=== PATIENT | male | born 1985 | race Caucasian/White ===

== ENCOUNTER 2018-07-24 19:37 | Emergency (ER) | payer SELFPAY ==
[2018-07-24] MEDS ORDERED: Lidocaine 1%* 5 ML VIAL INJ ONE (20:00)
[2018-07-24] MEDS ORDERED: Tetan/Diph/Pertus SYR(Tdap)* 0.5 ML SYR(BOOSTRIX) use SYR IM ONE (20:00)
--- NOTE | 2018-07-24 20:32 | UC ---
Laceration HPI - HPI Summary HPI Summary: Pt presents with c/o laceration to left hand between thumb and index finger. Pt was cutting up fire wood and knife cut hand. Pt is unsure of last tetanus. - History Of Current Complaint Chief Complaint: UCLaceration Stated Complaint: LEFT HAND PUNCTURE Time Seen by Provider: 07/24/18 19:48 Hx Obtained From: Patient Laceration Location: Hand Mechanism Of Injury: Sharp Trauma Onset/Duration: Sudden Onset Severity: Moderate Pain Intensity: 6 Related History: Dominant Hand Right - Allergies/Home Medications Allergies/Adverse Reactions: Allergies Allergy/AdvReac Type Severity Reaction Status Date / Time No Known Allergies Allergy Verified 07/24/18 19:49 Home Medications: Home Medications ALPRAZolam TAB* [Xanax TAB*] 0.5 mg PO TID PRN 07/24/18 [History Confirmed 07/24] PMH/Surg Hx/FS Hx/Imm Hx Previously Healthy: Yes - Surgical History Surgical History: Yes Surgery Procedure, Year, and Place: Hernia. Left thumb sx for torn ligament - Family History Known Family History: Positive: Cardiac Disease - Social History Occupation: Employed Full-time Lives: With Family Alcohol Use: Occasionally Substance Use Type: None Smoking Status (MU): Current Some Day Smoker Type: Cigars Amount Used/How Often: occassional Have You Smoked in the Last Year: Yes - Immunization History Vaccination Up to Date: No Review of Systems Constitutional: Negative Skin: Other - laceration left hand, Eyes: Negative ENT: Negative Respiratory: Negative Cardiovascular: Negative Gastrointestinal: Negative Genitourinary: Negative Motor: Negative Neurovascular: Negative Musculoskeletal: Negative Neurological: Negative Psychological: Negative Is Patient Immunocompromised?: No All Other Systems Reviewed And Are Negative: Yes Physical Exam Triage Information Reviewed: Yes Appearance: Well-Appearing Vital Signs: Initial Vital Signs Temp 99.5 F 07/24/18 19:50 Pulse 86 07/24/18 19:50 Resp 14 07/24/18 19:50 BP 148/89 07/24/18 19:50 Pulse Ox 99 07/24/18 19:50 Vital Signs Reviewed: Yes Eye Exam: Normal ENT Exam: Normal Dental Exam: Normal Neck exam: Normal Respiratory: Positive: No respiratory distress Musculoskeletal Exam: Normal Neurological Exam: Normal Psychological Exam: Normal Skin Exam: Other - laceration to left hand between thumb and first finger. Laceration Repair - Laceration Repair 1 Description: Linear Laceration Size After Repair: Length (cm) - .5, Width (mm) - 2, Depth (mm) - 3 Modified For Repair: No Type Injection: Local Cleansing Completed Via Routine Prep: Yes Closure Material: Sutures Closure Method: Single Layer Suture Of: Skin Suture Type: Prolene - 4-0. One suture placed left hand between thumb and index finger Laceration Course/Dx - Differential Dx - Laceration/Wound Differental Diagnoses: Laceration Provider Diagnoses: laceration repair to left hand. Discharge - Sign-Out/Discharge Documenting (check all that apply): Patient Departure All imaging exams completed and their final reports reviewed: No Studies - Discharge Plan Condition: Stable Disposition: HOME Prescriptions: Cephalexin CAP* [Keflex 500 CAP*] 500 mg PO Q8H #9 cap Patient Education Materials: Care For Your Stitches (DC), Laceration (ED) Referrals: [facility] [Outside] - If Needed No Primary Care Phys,NOPCP [Primary Care Provider] - Additional Instructions: Please return to clinic or go to your PCP to have your suture removed in 7-9 days. - Billing Disposition and Condition Condition: STABLE Disposition: Home
== END 2018-07-24 20:53 | disposition home or self-care (01) ==
LOC: UCCORT 19:37
DX: F17.210 Nicotine dependence, cigarettes, uncomplicated (principal); S61.412A Laceration without foreign body of left hand, initial encounter; W26.0XXA Contact with knife, initial encounter; Y92.9 Unspecified place or not applicable
CPT/HCPCS: 12001; 90715; 96372; 99202; G0463